=== PATIENT | male | born 1945 | race Caucasian/White ===

== ENCOUNTER 2020-10-21 08:40 | Day surgery (SDC) | payer OTHER, MEDICARE ==
[2020-10-16 13:39] VITALS: BMI 27.2
[2020-10-21] MEDS ORDERED: LIDOCAINE HCL/PF 2% SDV 5ML VIAL ONE (08:45)
[2020-10-21] MEDS ORDERED: PROPOFOL 20 ML ONE ×4 (08:46)
[2020-10-21 17:12] VITALS: PULSE 49; TEMP 97.5
[2020-10-21 17:15] VITALS: BP 103/44
== END 2020-10-21 11:06 | disposition home or self-care (01) ==
LOC: FASU-ENDO 08:40
PROVIDERS: ATTEND Internal Medicine Gastroenterology
PROC: 0DJD8ZZ Inspection of Lower Intestinal Tract, Via Natural or Artificial Opening Endoscopic (ICD-10-PCS; principal; 2020-10-21 09:40)
DX: Z12.11 Encounter for screening for malignant neoplasm of colon (principal); K64.1 Second degree hemorrhoids; K57.30 Diverticulosis of large intestine without perforation or abscess without bleeding